=== PATIENT | female | born 1975 | race Caucasian/White ===

== ENCOUNTER 2017-04-03 10:26 | Day surgery (SDC) | payer OTHER ==
[2017-03-31 14:48] VITALS: BP 135/87
[2017-03-31 15:28] LABS: BLOOD UREA NITROGEN 19 mg/dL (7-18)
[~2017-04-03] VITALS: Ht 160 cm; Wt 77.3 kg
[~2017-04-03 10:26] MED LIST: BUTA1CAP58 PO; ENAL1TAB5 PO; ENALAPRIL; LEVO100C2 PO; LEVO112T4 PO; LIOT5TAB3 PO; OMEP40CA6 PO; ONDA4TAB13 SL; OXYC1TAB8 PO
[2017-04-03] MEDS ORDERED: SODIUM CHLORIDE 0.9% 1,000 ML IV SCH (11:16)
[2017-04-03] MEDS ORDERED: ASPIRIN 325 MG TABLET EC ONE (11:18)
[2017-04-03] MEDS ORDERED: BISACODYL 5 MG EC TABLET PO PRN (11:30)
[2017-04-03] MEDS ORDERED: ASPIRIN 325 MG TABLET EC PO ONE (11:30)
[2017-04-03] MEDS ORDERED: BISACODYL 10 MG SUPP PR PRN (11:30)
[2017-04-03] MEDS ORDERED: ZOLPIDEM 5MG TABLET PO PRN (11:30)
[2017-04-03] MEDS ORDERED: ONDANSETRON 2MG/ML, 2ML IVPush PRN (11:30)
[2017-04-03] MEDS ORDERED: ACETAMINOPHEN 325 MG TABLET PO PRN (11:30)
[2017-04-03 11:44] LABS: BLOOD UREA NITROGEN 17 mg/dL (7-18)
[2017-04-03] MEDS ORDERED: HYDROcodone/APAP 5/325 TABLET ONE (14:03)
[2017-04-03] MEDS: HYDROcodone/APAP 5/325 TABLET PO PRN ×2 (14:19→15:00)
[2017-04-03] MEDS ORDERED: POTASSIUM CHLORIDE 20 MEQ TAB.ER.PRT PO ONE (15:00)
== END 2017-04-03 16:30 | disposition home or self-care (01) ==
LOC: CACL 10:26
PROVIDERS: ATTEND Internal Medicine Cardiovascular Disease
DX: I20.0 Unstable angina (principal); I10 Essential (primary) hypertension; E03.9 Hypothyroidism, unspecified; G43.909 Migraine, unspecified, not intractable, without status migrainosus; Z82.3 Family history of stroke; Z82.49 Family history of ischemic heart disease and other diseases of the circulatory system
CPT/HCPCS: 36415; 71020; 80048; 85025; 85610; 85730; 93005; 93458; 99156; C1894; Q9967; 99157

== ENCOUNTER → 2017-07-26 | Outpatient (CLI) | payer OTHER ==
[~2017-07-26] MED LIST changes: +LEVO100T5 PO
[2017-07-26 14:04] LABS: HEMATOCRIT 38.3 % (34.6-47.8); HEMOGLOBIN 13.2 g/dL (11.7-16.4)
[2017-07-26 14:15] LABS: ASPARTATE AMINO TRANSFERASE 22 U/L (15-37); BLOOD UREA NITROGEN 14 mg/dL (7-18)
== END | disposition home or self-care (01) ==
LOC: STAR 12:47
PROVIDERS: ATTEND Neurological Surgery
DX: Z01.818 Encounter for other preprocedural examination (principal); M54.5 Low back pain; R79.1 Abnormal coagulation profile
CPT/HCPCS: 36415; 71020; 80053; 85025; 85610; 85730; 93005

== ENCOUNTER → 2017-11-17 | Outpatient (CLI) | payer OTHER ==
[~2017-11-17] MED LIST changes: +HYDR-3240 PO; +SENN1TAB7 PO
== END | disposition home or self-care (01) ==
LOC: CFH 07:14
PROVIDERS: ATTEND Neurological Surgery
DX: M51.36 Other intervertebral disc degeneration, lumbar region (principal); M51.26 Other intervertebral disc displacement, lumbar region; M47.896 Other spondylosis, lumbar region
CPT/HCPCS: 72110; 72148

== ENCOUNTER → 2018-08-07 | Outpatient (CLI) | payer OTHER ==
[~2018-08-07] MED LIST changes: -SENN1TAB7 PO; +SENN1TAB8 PO
== END | disposition home or self-care (01) ==
LOC: CFH 14:49
PROVIDERS: ATTEND Neurological Surgery
DX: M43.26 Fusion of spine, lumbar region (principal)
CPT/HCPCS: 72131

== ENCOUNTER → 2019-01-04 | Outpatient (CLI) | payer OTHER ==
[~2019-01-04] MED LIST changes: +SENN-177 PO; -SENN1TAB8 PO
== END | disposition home or self-care (01) ==
LOC: CFH 13:04
PROVIDERS: ATTEND Neurological Surgery
DX: M54.5 Low back pain (principal); M54.2 Cervicalgia; M51.36 Other intervertebral disc degeneration, lumbar region
CPT/HCPCS: 72148

== ENCOUNTER → 2019-01-24 | Outpatient (CLI) | payer OTHER | END | disposition home or self-care (01) | LOC: CFH 12:42 | PROVIDERS: ATTEND Neurological Surgery | DX: M43.27 Fusion of spine, lumbosacral region (principal); M25.852 Other specified joint disorders, left hip; M25.851 Other specified joint disorders, right hip | CPT/HCPCS: 72100; 73523 ==

== ENCOUNTER → 2019-03-05 | Outpatient (CLI) | payer OTHER | END | disposition home or self-care (01) | LOC: CFH 11:30 | PROVIDERS: ATTEND Neurological Surgery | DX: M54.5 Low back pain (principal) | CPT/HCPCS: 72110 ==

== ENCOUNTER → 2020-05-13 | Outpatient (CLI) | payer OTHER ==
[~2020-05-13] MED LIST changes: +LIOT5TAB11 PO; -LIOT5TAB3 PO; +OMEP40CA42 PO; -OMEP40CA6 PO
== END | disposition home or self-care (01) ==
LOC: CFH 12:30
PROVIDERS: ATTEND Neurological Surgery
DX: M54.5 Low back pain (principal)
CPT/HCPCS: 72110